=== PATIENT | male | born 1945 | race Caucasian/White ===

== ENCOUNTER 2016-09-27 05:44 | Inpatient (IN) ==
[2016-09-19 10:29] LABS: Basophils % 0.7 % (0.0-0.8); Eosinophils # 0.3 10*3/uL (0.0-0.87); Eosinophils % 4.6 % (0.00-10.9); Hematocrit 37.1 VOL% (42.0-52.0); Immature Granulocytes % 0.5 %; Immature Granulocytes Absolute 0.03 #; Lymphocytes # 1.4 10*3/uL (1.4-4.0); Lymphocytes % 22.7 % (21.2-54.2); Mean Corpuscular Hemoglobin 30 PG (27-34); Mean Corpuscular Volume 86.7 FL (87-102); Mean Platelet Volume 10.7 FL (9.6-12.0); Monocytes # 0.4 10*3/uL (0.11-0.8); Monocytes % 6.1 % (1.7-12.7); Neutrophils % 65.4 % (38.7-73.9); Platelet Count 175 T/CUMM (130-400); Red Blood Count 4.28 MC/CUMM (3.8-5.5); White Blood Count 6.1 T/CUMM (4-12)
[2016-09-19 10:33] LABS: Apearance,Urine CLOUDY (Clear); Bacteria,Urine Many /HPF (Few); Bilirubin,Urine Negative (Negative); Blood, Urine Small mg/dL (Negative); Glucose,Urine (UA) 150 mg/dL (Negative); Ketones,Urine Negative (Negative); Mucus,Urine Occasional /LPF (Occasional); Nitrite,Urine Positive (Negative); Protein,Urine Negative; RBC,Urine 7 /HPF (0-4); Squamous Epithelial Cell,Urine Occasional /HPF (0-10); Urine Color Yellow (Yellow); Urine Specific Gravity 1.014 (1.001-1.035); Urine Urobilinogen < 2.0 EU/DL (0.2-1.0); WBC,Urine 361 /HPF (0-6)
--- NOTE | 2016-09-19 10:33 | EKG Report ---
Stationary ECG Study [facility] Test Date: 09/19/2016 10:33:24 AM Pat Name: PONCHO LONDONO Department: Room: Gender: M Director Of Home Economics: BLAZE 09-27-16 : 1945 Requested by: Kartik Owusu Order Number: [id number] Reading MD: JANNETTE CABRERA Intervals [place] Rate: 75 P: 80 UT: 163 QRS: 9 QRSD: 110 T: 37 QT: 408 QTc: 437 Interpretive Statements SINUS RHYTHM WITH FREQUENT SUPRAVENTRICULAR PREMATURE COMPLEXES POSSIBLE RIGHT VENTRICULAR CONDUCTION DELAY INFERIOR MYOCARDIAL INFARCTION, PROBABLY OLD WITH POSTERIOR EXTENSION NST Electronically Signed On 09-19-16 16:48:28 CDT by JANNETTE CABRERA [email or web address]
[2016-09-19 10:54] LABS: Calcium 9.3 MG/DL (8.5-10.1); Osmolality,Calculated 281.8 MOS/KG (273-304); Potassium 4.8 MMOL/L (3.5-5.1)
[2016-09-27] MEDS ORDERED: FAMOTIDINE 20 MG TABLET PO ONE (05:57)
[2016-09-27] MEDS ORDERED: LORazepam 1 MG TABLET PO ONE (05:57)
[2016-09-27] MEDS ORDERED: LEVOFLOXACIN INJ 500 MG in PREMIX 1 EACH IV ONE (06:00)
[2016-09-27] MEDS ORDERED: INSULIN REGULAR 100 UNIT/ML IV ONE (06:37)
[2016-09-27] MEDS ORDERED: LEVOFLOXACIN INJ 100 ML IV ONE (06:41)
[2016-09-27] MEDS ORDERED: FAMOTIDINE 20 MG TABLET ONE (06:41)
[2016-09-27] MEDS ORDERED: INSULIN REGULAR 100 UNIT/ML ONE (06:43)
[2016-09-27] MEDS ORDERED: NEOMYCIN/POLYMYXIN IRRIG SOLN 1 ML AMP BLADDERIRR ONE ×2 (07:07→07:22)
[2016-09-27] MEDS ORDERED: LIDOCAINE 2% 5 ML VIAL ONE (07:12)
[2016-09-27] MEDS ORDERED: PHENYLEPHRINE 1 MG/10 ML SYRINGE IV ONE (07:12)
[2016-09-27] MEDS ORDERED: PROPOFOL 200 MG/20 ML VIAL IV ONE (07:12)
[2016-09-27] MEDS ORDERED: MEPERIDINE 50 MG/1 ML VIAL IM PRN (09:24)
--- NOTE | 2016-09-27 09:29 | Operative Note ---
Date of procedure: 09/27/16 Pre-op diagnosis: BPH urinary retention, large bladder stone Post-op diagnosis: same Procedure: 70-year-old white male who was found to have urinary tract infection significant voiding problems with retention. His evaluation was completed he was found to have a rather large bladder stone and a moderately large prostate with a large median bar. I have recommended a laser fragmentation of the bladder stone and a transurethral resection of the prostate by electrocautery technique. These procedures was explained to the patient at length and in detail. Risks, complications, outcomes, sequelae, prognosis and alternative therapy was thoroughly discussed. Patient understood this and agreed to proceed. Patient had been found to have a urinary tract infection. He has been on Levaquin for the last 3 days. Red rubber catheter was inserted in his bladder and his bladder was irrigated with irrigant and about 2 300 cc was left in the bladder. 25 Gambian cystoscope passed after the urethra sounded to 26 Gambian. The video camera was attached. Inspection revealed the urethra prostate and bladder are unchanged. Stone in the bladder is a Moody stone and it measures 4 cm. The 550 mcm holmium laser fiber was passed through the cystoscope and the stone is then incrementally fragmented. This did take quite some time due to the size of the stone. But ultimately the stone was fragmented in pieces it could be Elicked out. After removing most of the fragments the TUR was begun. Cystoscope was removed. A 28 Gambian resectoscope sheath with Tor obturator was then passed in the bladder. The obturator was removed and the Streeter working element with 30 lens and loop was placed in the sheath. The resection was begun at the 12 o'clock position and carried down the surgical capsule. Resection was continued likewise manner from the 1:00 to 5: 00 11:00 7:00 positions. Cautery was used for hemostasis. The bladder was then Elicked of all chips. Inspection revealed all adenomas resected the bladder was free of chips and bladder stone fragments. Ureteral orifices as well as the external sphincter mechanism was intact. The resectoscope was then removed and a 22 Gambian three-way Hopson was inserted in the bladder and irrigated until clear. Catheter was connected irrigation Hopson drainage. Patient tolerated this procedure well was awakened anesthesia and sent to the recovery room in stable condition. All sponge, needle and instrument counts correct 2. Implants: 22 Gambian three-way Hopson Anesthesia: DARWINA Surgeon / Physician: Kartik Owusu Estimated blood loss: other (300 cc) Specimens: other (Bladder stone fragments, prostate chips) Condition: stable Disposition: PACU Results - Labs CBC & BMP: 09/19/16 10:18 09/19/16 10:18 Discharge Plan - Discharge Medications No Action Lisinopril [Prinivil] 5 mg PO DAILY Atorvastatin [Lipitor] 40 mg PO DAILY glipiZIDE [Glucotrol] 15 mg PO BIDAC Aspirin EC Tab 81 mg PO DAILY Atenolol 12.5 mg PO DAILY Saxagliptin HCl [Onglyza] 2.5 mg PO DAILY Tamsulosin [Flomax] 0.4 mg PO DAILY #30 capsule Metformin HCl 850 mg PO TID Cyanocobalamin Tab [Vitamin B12 Tab] 1,000 mcg PO DAILY - Follow Up or Referral - Forms/Instructions
[2016-09-27] MEDS: HYDROmorphone 2 MG/1 ML VIAL IV PRN ×4 (09:36→09:51)
[2016-09-27] MEDS ORDERED: ONDANSETRON 4 MG/2 ML VIAL ONE (09:36)
[2016-09-27] MEDS ORDERED: HYDROmorphone 2 MG/1 ML VIAL ONE (09:36)
[2016-09-27] MEDS ORDERED: ONDANSETRON 4 MG/2 ML VIAL IV PRN (09:51)
[2016-09-27] MEDS ORDERED: MEPERIDINE 25 MG/1 ML VIAL IV PRN (10:12)
[2016-09-27] MEDS: LEVOFLOXACIN INJ 500 MG in PREMIX 1 EACH IV SCH (11:57)
[2016-09-27] MEDS ORDERED: fentaNYL 100 MCG/2 ML VIAL ONE (13:02)
[2016-09-27] MEDS ORDERED: LACTATED RINGERS 1,000 ML IV ONE (13:02)
[2016-09-27] MEDS ORDERED: MIDAZOLAM 2 MG/2 ML VIAL ONE (13:02)
[2016-09-27] MEDS ORDERED: SEVOFLURANE 1 UNIT/15 MINUTE INH ONE (13:02)
--- NOTE | 2016-09-27 14:34 | Urology Progress Note ---
Urology - PN: Subj Interval history: Postoperative check. Patient is alert. Complains of pelvic pressures. irrigation is clear at times and then bloody. The nurses and will have to watch this. Vital signs are stable. Patient is stable. Exam - Constitutional Vitals: Period Temp Pulse Resp BP Sys/Cruz Pulse Ox Last 24 Hr 97.3 F-98.6 F 72-90 16-20 100-152/53-79 95-100 Results - Labs CBC & BMP: 09/19/16 10:18 09/19/16 10:18
--- NOTE | 2016-09-27 14:39 | Anesthesia Post-Op ---
Anesthesia Post OP - Post Ansesthetic Evaluation Patient seen in post op: Yes Resp: within normal limits CV: within normal limits Mental: within normal limits Temp: within normal limits [id number]: within normal limits Nausea and Vomiting: within normal limits Pain: within normal limits
[2016-09-27] MEDS: glipiZIDE 10 MG TABLET PO SCH (15:50)
[2016-09-27] MEDS: metFORMIN 850 MG TABLET PO SCH ×2 (15:50→20:16)
[2016-09-27] MEDS: SODIUM CHLORIDE 0.9% 1,000 ML IV SCH (15:50)
[2016-09-28 02:27] LABS: Basophils % 0.3 % (0.0-0.8); Eosinophils # 0.2 10*3/uL (0.0-0.87); Eosinophils % 1.6 % (0.00-10.9); Hematocrit 33.7 VOL% (42.0-52.0); Hemoglobin 11.4 GM/DL (14.0-18.0); Immature Granulocytes % 0.4 %; Immature Granulocytes Absolute 0.04 #; Lymphocytes # 1.7 10*3/uL (1.4-4.0); Mean Corpuscular HGB Conc 33.8 GM/DL (32-36); Mean Corpuscular Hemoglobin 30 PG (27-34); Mean Corpuscular Volume 87.1 FL (87-102); Mean Platelet Volume 10.7 FL (9.6-12.0); Monocytes # 0.4 10*3/uL (0.11-0.8); Monocytes % 4.4 % (1.7-12.7); Neutrophils # 7.4 10*3/uL (1.4-7.4); Neutrophils % 76.3 % (38.7-73.9); Platelet Count 171 T/CUMM (130-400); Red Blood Count 3.87 MC/CUMM (3.8-5.5); Red Cell Distribution Width 14.1 % (9.3-17.3); White Blood Count 9.7 T/CUMM (4-12)
[2016-09-28 02:54] LABS: Osmolality,Calculated 282.3 MOS/KG (273-304); Potassium 3.9 MMOL/L (3.5-5.1)
[2016-09-28] MEDS: SODIUM CHLORIDE 0.9% 1,000 ML IV SCH (03:29)
[2016-09-28] MEDS: sitaGLIPtin 100 MG TABLET PO SCH (08:26)
[2016-09-28] MEDS: CYANOCOBALAMIN 500 MCG TABLET PO SCH (08:26)
[2016-09-28] MEDS: ATORVASTATIN 40 MG TABLET PO SCH (08:26)
[2016-09-28] MEDS: glipiZIDE 10 MG TABLET PO SCH ×2 (08:26→15:41)
[2016-09-28] MEDS: LISINOPRIL 5 MG TABLET PO SCH (08:27)
[2016-09-28] MEDS: ATENOLOL 25 MG TABLET PO SCH (08:27)
[2016-09-28] MEDS: metFORMIN 850 MG TABLET PO SCH ×3 (08:27→20:24)
[2016-09-28] MEDS: LEVOFLOXACIN INJ 500 MG in PREMIX 1 EACH IV SCH ×2 (08:27→08:32)
--- NOTE | 2016-09-28 12:41 | Urology Progress Note ---
Urology - PN: Subj Interval history: Patient had a stable night. Blood work looks normal creatinine is normal. Urine is clear. We will DC his IV and catheter. We will INT his IV. I want to Levaquin to continue to go. He did have urinary tract infection and was destroying the stone and in the TURP we need to treat this so he does not have a septic episode. Exam - Constitutional Vitals: Period Temp Pulse Resp BP Sys/Cruz Pulse Ox Last 24 Hr 97.2 F-99.4 F 70-84 16-20 103-122/60-75 95-99 Results - Labs CBC & BMP: 09/28/16 01:45 09/28/16 01:45
[2016-09-29 07:22] VITALS: BP 128/63
[2016-09-29] MEDS: LISINOPRIL 5 MG TABLET PO SCH (08:37)
[2016-09-29] MEDS: glipiZIDE 10 MG TABLET PO SCH (08:37)
[2016-09-29] MEDS: ATENOLOL 25 MG TABLET PO SCH (08:38)
[2016-09-29] MEDS: LEVOFLOXACIN INJ 500 MG in PREMIX 1 EACH IV SCH (08:38)
[2016-09-29] MEDS: sitaGLIPtin 100 MG TABLET PO SCH (08:38)
[2016-09-29] MEDS: metFORMIN 850 MG TABLET PO SCH (08:38)
[2016-09-29] MEDS: CYANOCOBALAMIN 500 MCG TABLET PO SCH (08:38)
[2016-09-29] MEDS: ATORVASTATIN 40 MG TABLET PO SCH (08:38)
--- NOTE | 2016-09-29 13:19 | Discharge Summary ---
Hospital Course - Hospital Course Hospital Course: Patient was admitted for TURP and removal bladder stone. He underwent these procedures without difficulty. Catheter is out he is voiding well. His urine is mildly red. But I think he can go home. He did have urinary tract infection beforehand so I will send him home on a few biotics. Pathology report is pending. He has had a normal bowel movement. Tolerating diet. I will hold his aspirin. I will see him in 2 weeks. Discharge medicines will be Levaquin 500 mg #3, 1 p.o. daily, no refills. - Time spent with patient Time with patient DS: Greater than 30 minutes Diagnosis - Discharge Diagnosis (1) Bladder calculus Status: Resolved (2) Urinary retention due to benign prostatic hyperplasia Status: Resolved Discharge Plan - Discharge Data Disposition: Disch To Home/Self Care Condition at Discharge: Stable Discharge Diet: regular diet Activity: no lifting, other (Walking on flat ground is encouraged, no driving, heavy lifting etc.) Hygiene: no restrictions Weight Bearing at Discharge: full weight bearing Driving: no restrictions Contact your physician if you experience:: fever over 101, Difficulty voiding, Bleeding - Discharge Medications New Levofloxacin Inj [Levaquin Inj] 500 mg IV Q24H Continue Lisinopril [Prinivil] 5 mg PO DAILY Atorvastatin [Lipitor] 40 mg PO DAILY glipiZIDE [Glucotrol] 15 mg PO BIDAC Atenolol 12.5 mg PO DAILY Saxagliptin HCl [Onglyza] 2.5 mg PO DAILY Metformin HCl 850 mg PO TID Cyanocobalamin Tab [Vitamin B12 Tab] 1,000 mcg PO DAILY Discontinued Aspirin EC Tab 81 mg PO DAILY Tamsulosin [Flomax] 0.4 mg PO DAILY #30 capsule - Follow Up or Referral - Forms/Instructions Exam - Constitutional Vitals: Period Temp Pulse Resp BP Sys/Cruz Pulse Ox Last 24 Hr 97.5 F-99.3 F 71-83 20-20 113-128/57-71 93-98 Discharge Results Procedures and tests throughout hospitalization: Pending Orders 09/27/16 09:41 Kidney Stone Analysis Routine Labs on day of discharge: Labs from last 24 hours 09/29/16 09/29/16 09/28/16 11:32 07:46 19:30 POC Glucose 217 H 236 H 155 H 09/28/16 09/28/16 15:17 11:37 POC Glucose 192 H 255 H DS: Provider Date of admission: 09/27/16 09:20 Primary care physician: Joce Chaidez Attending physician on admission: Kartik Owusu MD Discharging clinician: Kartik Owusu MD
--- NOTE | 2016-09-30 12:23 | Pathology Report from [facility] ---
[facility] ACCESSION # : [id number] PATIENT NAME : Pa Londono ORDERING DR : LONG AMEZCUA MD CLINICAL HX: BPH POST-OP DX: Same SPECIMEN INFO: Prostate shavings GROSS DESCRIPTION: Received fresh labeled PA LONDONO consists of mutliple fragments of pink negrete prostate tissue weighnig 41 gms and measures 10.0 x 9.0 x 1.5 cm in aggregate, submitted in cassettes A-J. DIAGNOSIS FOR PA LONDONO: PROSTATE PARINGS, TURP: Glandular and fibromuscular hyperplasia/hypertrophy; acute and chronic prostatitis. COLLECTED DATE: 09/27/2016 [facility] REPORT DATE: 09/30/2016 ELECTRONICALLY SIGNED BY: Maryanne Watt M.D. 09/30/2016 - 10:47:35 [facility]
== END 2016-09-29 14:40 | disposition home or self-care (01) | DRG 666 ==
LOC: N.SDSINP 05:44 → N.OR 05:44 → N.SDSINP 09:20 → N.5E 11:00
PROVIDERS: ADMIT Urology; ATTEND Urology

== ENCOUNTER 2020-04-03 00:14 | Observation (INO) ==
[2020-04-03] MEDS ORDERED: SODIUM CHLORIDE 0.9% 1,000 ML IV STA (00:29)
[2020-04-03] MEDS ORDERED: ONDANSETRON 4 MG/2 ML VIAL IV ONE (00:29)
[2020-04-03 00:51] LABS: Basophils % 0.3 % (0.0-0.8); Eosinophils # 0.1 10*3/uL (0.0-0.87); Eosinophils % 0.7 % (0.00-10.9); Hematocrit 37.5 VOL% (42.0-52.0); Hemoglobin 12.8 GM/DL (14.0-18.0); Immature Granulocytes % 0.3 %; Immature Granulocytes Absolute 0.02 #; Lymphocytes # 0.7 10*3/uL (1.4-4.0); Lymphocytes % 10.1 % (21.2-54.2); Mean Corpuscular HGB Conc 34.1 GM/DL (32-36); Mean Corpuscular Volume 88.2 FL (87-102); Monocytes # 0.3 10*3/uL (0.11-0.8); Monocytes % 4.8 % (1.7-12.7); Neutrophils % 83.8 % (38.7-73.9); Platelet Count 119 T/CUMM (130-400); Red Blood Count 4.25 MC/CUMM (3.8-5.5); Red Cell Distribution Width 13.5 % (9.3-17.3); White Blood Count 7.1 T/CUMM (4-12)
[2020-04-03] MEDS ORDERED: MAGNESIUM SULFATE 1 GM/2 ML VIAL IV ONE (00:51)
[2020-04-03 00:55] LABS: Alanine Aminotransferase 43 U/L (16-61); Albumin 3.4 G/DL (3.4-5.0); Alkaline Phosphatase 69 U/L (45-117); Aspartate Amino Transferase 33 U/L (0-37); Blood Urea Nitrogen 15 MG/DL (7-18); Calcium 8.3 MG/DL (8.5-10.1); Carbon Dioxide 20 MMOL/L (21-32); Chloride 106 MMOL/L (98-107); Estimated Glom Filtration Rate 67 ML/MIN; Glucose 192 MG/DL (74-106); Osmolality,Calculated 278.8 MOS/KG (273-304); Potassium 3.5 MMOL/L (3.5-5.1); Sodium 137 MMOL/L (136-145); Total Protein 6.9 G/DL (6.4-8.3); Troponin I < 0.015 NG/ML (0.00-0.045)
[2020-04-03] MEDS ORDERED: MAGNESIUM SULF RIDER 50 ML IV STA (01:07)
[2020-04-03] MEDS ORDERED: SODIUM CHLORIDE 0.9% 500 ML IV STA (01:33)
[2020-04-03 02:05] LABS: Bacteria,Urine Occasional /HPF (Few); Bilirubin,Urine Negative (Negative); Blood, Urine Small mg/dL (Negative); Glucose,Urine (UA) 150 mg/dL (Negative); Hyaline Casts,Urine 1 /LPF (0-3); Ketones,Urine 5 mg/dL (Negative); Mucus,Urine Occasional /LPF (Occasional); Nitrite,Urine Negative (Negative); Protein,Urine Negative; RBC,Urine 5 /HPF (0-4); Urine Appearance CLEAR (Clear); Urine Color Yellow (Yellow); Urine Specific Gravity 1.016 (1.001-1.035); Urine Urobilinogen < 2.0 EU/DL (0.2-1.0); WBC,Urine 6 /HPF (0-6)
[2020-04-03] MEDS ORDERED: PROMETHAZINE 25 MG/1 ML VIAL IM PRN (02:34)
[2020-04-03] MEDS ORDERED: GLUCAGON 1 MG VIAL IM PRN (02:34)
[2020-04-03] MEDS ORDERED: ONDANSETRON 4 MG/2 ML VIAL IV PRN (02:34)
[2020-04-03] MEDS ORDERED: ACETAMINOPHEN 325 MG TABLET PO PRN (02:34)
[2020-04-03] MEDS ORDERED: DEXTROSE 50% 25 GM/50 ML VIAL IV PRN (02:34)
[2020-04-03] MEDS: SODIUM CHLORIDE 0.9% 1,000 ML IV SCH ×2 (05:37→11:52)
[2020-04-03 08:05] LABS: Albumin 3.5 G/DL (3.4-5.0); Bilirubin,Total 0.7 MG/DL (0.2-1.0); Calcium 8.4 MG/DL (8.5-10.1); Osmolality,Calculated 278.7 MOS/KG (273-304); Potassium 4.1 MMOL/L (3.5-5.1); Total Protein 7.5 G/DL (6.4-8.3)
[2020-04-03] MEDS: INSULIN REGULAR 100 UNIT/ML SUBCUT SCH ×4 (08:23→21:00)
[2020-04-03] MEDS: PANTOPRAZOLE 40 MG TABLET PO SCH (08:24)
[2020-04-03] MEDS: ENOXAPARIN 40 MG/0.4 ML SYRINGE SUBCUT SCH (08:24)
[2020-04-04] MEDS: SODIUM CHLORIDE 0.9% 1,000 ML IV SCH ×3 (01:47→05:58)
[2020-04-04 03:46] LABS: Basophils % 0.2 % (0.0-0.8); Eosinophils % 0.2 % (0.00-10.9); Hematocrit 36.5 VOL% (42.0-52.0); Hemoglobin 12.5 GM/DL (14.0-18.0); Immature Granulocytes % 0.2 %; Immature Granulocytes Absolute 0.01 #; Lymphocytes # 0.7 10*3/uL (1.4-4.0); Lymphocytes % 13.5 % (21.2-54.2); Mean Corpuscular HGB Conc 34.2 GM/DL (32-36); Mean Corpuscular Volume 86.7 FL (87-102); Mean Platelet Volume 11.5 FL (9.6-12.0); Monocytes # 0.3 10*3/uL (0.11-0.8); Monocytes % 5.1 % (1.7-12.7); Neutrophils % 80.8 % (38.7-73.9); Red Blood Count 4.21 MC/CUMM (3.8-5.5); Red Cell Distribution Width 13.1 % (9.3-17.3); White Blood Count 5.1 T/CUMM (4-12)
[2020-04-04 04:00] LABS: Platelet Count 98 T/CUMM (130-400)
[2020-04-04 04:05] LABS: Calcium 8.2 MG/DL (8.5-10.1); Osmolality,Calculated 273.8 MOS/KG (273-304); Potassium 3.7 MMOL/L (3.5-5.1)
[2020-04-04] MEDS: PANTOPRAZOLE 40 MG TABLET PO SCH (08:04)
[2020-04-04] MEDS: ENOXAPARIN 40 MG/0.4 ML SYRINGE SUBCUT SCH (08:04)
[2020-04-04] MEDS: INSULIN REGULAR 100 UNIT/ML SUBCUT SCH ×2 (08:04→12:39)
[2020-04-04] MEDS ORDERED: DEXTROSE 50% 25 GM/50 ML VIAL IV PRN (09:12)
[2020-04-04 12:24] VITALS: BP 120/66
== END 2020-04-04 14:03 | disposition home or self-care (01) ==
LOC: EDUNIT# → EDBD → N.EDINP 00:14 → N.ED 00:14 → N.EDINP 05:00 → N.TELES 05:27
PROVIDERS: ADMIT Internal Medicine; ATTEND Internal Medicine

== ENCOUNTER 2020-04-05 08:05 | Inpatient (IN) ==
[2020-04-05] MEDS ORDERED: ONDANSETRON 4 MG/2 ML VIAL IV STA (08:31)
[2020-04-05] MEDS ORDERED: SODIUM CHLORIDE 0.9% 1,000 ML IV STA (08:31)
[2020-04-05 08:47] LABS: Basophils % 0.2 % (0.0-0.8); Hematocrit 37.3 VOL% (42.0-52.0); Hemoglobin 12.8 GM/DL (14.0-18.0); Immature Granulocytes % 0.4 %; Immature Granulocytes Absolute 0.02 #; Lymphocytes # 0.5 10*3/uL (1.4-4.0); Lymphocytes % 9.8 % (21.2-54.2); Mean Corpuscular HGB Conc 34.3 GM/DL (32-36); Mean Corpuscular Volume 86.9 FL (87-102); Mean Platelet Volume 11.4 FL (9.6-12.0); Monocytes % 3.4 % (1.7-12.7); Neutrophils % 86.2 % (38.7-73.9); Red Blood Count 4.29 MC/CUMM (3.8-5.5); Red Cell Distribution Width 13.3 % (9.3-17.3)
[2020-04-05 08:48] LABS: Platelet Count 86 T/CUMM (130-400)
[2020-04-05 09:04] LABS: Hypochromasia 1+; Microcytosis 1+; Platelet Estimate Decreased
[2020-04-05 09:06] LABS: Albumin 3.3 G/DL (3.4-5.0); Calcium 8.3 MG/DL (8.5-10.1); Osmolality,Calculated 273.4 MOS/KG (273-304); Total Protein 7.2 G/DL (6.4-8.3)
[2020-04-05 09:15] LABS: Free T4 (Free Thyroxine) 1.23 NG/DL (0.76-1.46); Thyroid Stimulating Hormone 0.294 uIU/ml (0.358-3.74)
[2020-04-05] MEDS ORDERED: DEXTROSE 50% 25 GM/50 ML VIAL IV PRN (09:20)
[2020-04-05] MEDS ORDERED: hydrALAZINE 20 MG/1 ML VIAL IV PRN (09:20)
[2020-04-05] MEDS ORDERED: ACETAMINOPHEN 325 MG TABLET PO PRN (09:20)
[2020-04-05] MEDS ORDERED: GLUCAGON 1 MG VIAL IM PRN (09:20)
[2020-04-05 09:40] LABS: PT Patient Result 10.9 SECS (9.8-11.9)
[2020-04-05 10:03] LABS: Amorphous Crystals,Urine Few /HPF (Few); Bacteria,Urine Occasional /HPF (Few); Bilirubin,Urine Negative (Negative); Blood, Urine Moderate mg/dL (Negative); Glucose,Urine (UA) >=500 mg/dL (Negative); Ketones,Urine 80 mg/dL (Negative); Mucus,Urine Occasional /LPF (Occasional); Nitrite,Urine Negative (Negative); Protein,Urine 30 MG/DL; RBC,Urine 4 /HPF (0-4); Urine Appearance CLEAR (Clear); Urine Color Yellow (Yellow); Urine Specific Gravity 1.015 (1.001-1.035); Urine Urobilinogen < 2.0 EU/DL (0.2-1.0); WBC,Urine 3 /HPF (0-6)
[2020-04-05] MEDS: AZITHROMYCIN INJ 500 MG in SODIUM CHLORIDE 0.9% 250 ML IV SCH (10:10)
[2020-04-05] MEDS: cefTRIAXone 1,000 MG in SYRINGE 1 EACH IV SCH (10:10)
[2020-04-05] MEDS: SODIUM CHLORIDE 0.9% 1,000 ML IV SCH (10:10)
[2020-04-05 10:16] LABS: Ferritin 219.8 ng/ml (26-388)
[2020-04-05] MEDS: ENOXAPARIN 40 MG/0.4 ML SYRINGE SUBCUT SCH (16:20)
[2020-04-05] MEDS: INSULIN REGULAR 100 UNIT/ML SUBCUT SCH ×2 (16:34→21:34)
[2020-04-05] MEDS: ALBUTEROL INHALER 18 GM INH SCH (22:05)
[2020-04-05] MEDS: guaiFENesin/DM ER 600-30 MG TABLET PO SCH (23:12)
[2020-04-05] MEDS: FAMOTIDINE 20 MG TABLET PO SCH (23:12)
[2020-04-05] MEDS: ASCORBIC ACID 500 MG TABLET PO SCH (23:12)
[2020-04-06] MEDS: ALBUTEROL INHALER 18 GM INH SCH ×2 (00:36→23:00)
[2020-04-06 02:50] LABS: Calcium 8.3 MG/DL (8.5-10.1); Osmolality,Calculated 272.2 MOS/KG (273-304)
[2020-04-06 02:52] LABS: Basophils % 0.2 % (0.0-0.8); Hematocrit 40.3 VOL% (42.0-52.0); Hemoglobin 14.1 GM/DL (14.0-18.0); Immature Granulocytes % 0.4 %; Immature Granulocytes Absolute 0.02 #; Lymphocytes % 19.8 % (21.2-54.2); Mean Corpuscular Volume 85.6 FL (87-102); Mean Platelet Volume 11.5 FL (9.6-12.0); Monocytes % 2.6 % (1.7-12.7); Red Blood Count 4.71 MC/CUMM (3.8-5.5); Red Cell Distribution Width 13.3 % (9.3-17.3); White Blood Count 4.9 T/CUMM (4-12)
[2020-04-06 02:54] LABS: Ferritin 316.9 ng/ml (26-388)
[2020-04-06 02:55] LABS: Platelet Count 97 T/CUMM (130-400)
[2020-04-06 03:34] LABS: Ovalocytes 1+; Platelet Estimate Adequate
[2020-04-06 03:35] LABS: Burr Cells 1+
[2020-04-06] MEDS: SODIUM CHLORIDE 0.9% 1,000 ML IV SCH (06:59)
[2020-04-06] MEDS: ASPIRIN EC 81 MG TABLET PO SCH (09:25)
[2020-04-06] MEDS: ENOXAPARIN 40 MG/0.4 ML SYRINGE SUBCUT SCH (09:25)
[2020-04-06] MEDS: CHOLECALCIFEROL 1,000 UNIT TABLET PO SCH (09:25)
[2020-04-06] MEDS: glipiZIDE 10 MG TABLET PO SCH ×2 (09:25→15:30)
[2020-04-06] MEDS: ATORVASTATIN 40 MG TABLET PO SCH (09:25)
[2020-04-06] MEDS: CETIRIZINE 10 MG TABLET PO SCH (09:25)
[2020-04-06] MEDS: ZINC GLUCONATE 50 MG TABLET PO SCH (09:25)
[2020-04-06] MEDS: cefTRIAXone 1,000 MG in SYRINGE 1 EACH IV SCH (09:25)
[2020-04-06] MEDS: AZITHROMYCIN INJ 500 MG in SODIUM CHLORIDE 0.9% 250 ML IV SCH (09:25)
[2020-04-06] MEDS: FAMOTIDINE 20 MG TABLET PO SCH ×2 (09:25→23:01)
[2020-04-06] MEDS: DEXAMETHASONE 4 MG/1 ML VIAL IV SCH (09:25)
[2020-04-06] MEDS: guaiFENesin/DM ER 600-30 MG TABLET PO SCH ×2 (09:25→23:01)
[2020-04-06] MEDS: ASCORBIC ACID 500 MG TABLET PO SCH ×2 (09:25→23:01)
[2020-04-06] MEDS: INSULIN REGULAR 100 UNIT/ML SUBCUT SCH ×4 (11:08→23:54)
[2020-04-06] MEDS ORDERED: AZITHROMYCIN INJ 500 MG in SODIUM CHLORIDE 0.9% 250 ML IV SCH (14:00)
[2020-04-06] MEDS ORDERED: SODIUM CHLORIDE 0.9% 1,000 ML IV PRN (15:00)
[2020-04-06] MEDS ORDERED: REMDESIVIR 200 MG in SODIUM CHLORIDE 0.9% 210 ML IV ONE (15:30)
[2020-04-07] MEDS: ALBUTEROL INHALER 18 GM INH SCH ×5 (00:26→20:14)
[2020-04-07 06:23] LABS: Basophils % 0.1 % (0.0-0.8); Hematocrit 40.3 VOL% (42.0-52.0); Hemoglobin 13.8 GM/DL (14.0-18.0); Immature Granulocytes % 0.4 %; Immature Granulocytes Absolute 0.03 #; Lymphocytes # 0.7 10*3/uL (1.4-4.0); Lymphocytes % 9.5 % (21.2-54.2); Mean Corpuscular HGB Conc 34.2 GM/DL (32-36); Mean Corpuscular Volume 87.2 FL (87-102); Mean Platelet Volume 12.1 FL (9.6-12.0); Monocytes % 3.2 % (1.7-12.7); Neutrophils % 86.8 % (38.7-73.9); Platelet Count 124 T/CUMM (130-400); Red Blood Count 4.62 MC/CUMM (3.8-5.5); Red Cell Distribution Width 13.5 % (9.3-17.3); White Blood Count 7.6 T/CUMM (4-12)
[2020-04-07 06:25] LABS: Calcium 8.4 MG/DL (8.5-10.1); Osmolality,Calculated 276.2 MOS/KG (273-304)
[2020-04-07 06:31] LABS: Ferritin 520.3 ng/ml (26-388)
[2020-04-07] MEDS: glipiZIDE 10 MG TABLET PO SCH ×2 (08:36→16:24)
[2020-04-07] MEDS: INSULIN REGULAR 100 UNIT/ML SUBCUT SCH ×4 (08:36→22:36)
[2020-04-07] MEDS ORDERED: VANCOMYCIN INJ 1,000 MG in SODIUM CHLORIDE 0.9% 250 ML IV SCH (09:00)
[2020-04-07] MEDS: ASPIRIN EC 81 MG TABLET PO SCH (10:15)
[2020-04-07] MEDS: guaiFENesin/DM ER 600-30 MG TABLET PO SCH ×2 (10:15→22:36)
[2020-04-07] MEDS: ZINC GLUCONATE 50 MG TABLET PO SCH (10:15)
[2020-04-07] MEDS: ASCORBIC ACID 500 MG TABLET PO SCH ×2 (10:15→22:36)
[2020-04-07] MEDS: FAMOTIDINE 20 MG TABLET PO SCH ×2 (10:15→22:35)
[2020-04-07] MEDS: REMDESIVIR 100 MG in SODIUM CHLORIDE 0.9% 100 ML IV SCH (10:15)
[2020-04-07] MEDS: ENOXAPARIN 40 MG/0.4 ML SYRINGE SUBCUT SCH (10:15)
[2020-04-07] MEDS: DEXAMETHASONE 4 MG/1 ML VIAL IV SCH (10:15)
[2020-04-07] MEDS: CETIRIZINE 10 MG TABLET PO SCH (10:15)
[2020-04-07] MEDS: ATORVASTATIN 40 MG TABLET PO SCH (10:15)
[2020-04-07] MEDS: CHOLECALCIFEROL 1,000 UNIT TABLET PO SCH (10:15)
[2020-04-07] MEDS: cefTRIAXone 1,000 MG in SYRINGE 1 EACH IV SCH (10:18)
[2020-04-07] MEDS: AZITHROMYCIN INJ 500 MG in SODIUM CHLORIDE 0.9% 250 ML IV SCH (12:20)
[2020-04-08] MEDS: ALBUTEROL INHALER 18 GM INH SCH ×4 (01:25→20:28)
[2020-04-08 05:52] LABS: Calcium 8.7 MG/DL (8.5-10.1); Osmolality,Calculated 281.7 MOS/KG (273-304)
[2020-04-08 05:55] LABS: Ferritin 822.2 ng/ml (26-388)
[2020-04-08 06:08] LABS: Hematocrit 42.5 VOL% (42.0-52.0); Hemoglobin 14.4 GM/DL (14.0-18.0); Immature Granulocytes % 0.5 %; Immature Granulocytes Absolute 0.04 #; Lymphocytes # 0.5 10*3/uL (1.4-4.0); Lymphocytes % 6.5 % (21.2-54.2); Mean Corpuscular HGB Conc 33.9 GM/DL (32-36); Mean Corpuscular Volume 86.9 FL (87-102); Mean Platelet Volume 11.6 FL (9.6-12.0); Platelet Count 148 T/CUMM (130-400); Red Blood Count 4.89 MC/CUMM (3.8-5.5); Red Cell Distribution Width 13.4 % (9.3-17.3); White Blood Count 7.6 T/CUMM (4-12)
[2020-04-08] MEDS ORDERED: risperiDONE 0.25 MG TABLET PO SCH (09:00)
[2020-04-08] MEDS: ENOXAPARIN 40 MG/0.4 ML SYRINGE SUBCUT SCH (10:15)
[2020-04-08] MEDS: atenoloL 25 MG TABLET PO SCH (10:15)
[2020-04-08] MEDS: guaiFENesin/DM ER 600-30 MG TABLET PO SCH (10:15)
[2020-04-08] MEDS: ZINC GLUCONATE 50 MG TABLET PO SCH (10:15)
[2020-04-08] MEDS: ASCORBIC ACID 500 MG TABLET PO SCH ×2 (10:15→20:28)
[2020-04-08] MEDS: glipiZIDE 10 MG TABLET PO SCH ×2 (10:15→16:36)
[2020-04-08] MEDS: INSULIN REGULAR 100 UNIT/ML SUBCUT SCH ×4 (10:15→21:20)
[2020-04-08] MEDS: ATORVASTATIN 40 MG TABLET PO SCH (10:15)
[2020-04-08] MEDS: CHOLECALCIFEROL 1,000 UNIT TABLET PO SCH (10:15)
[2020-04-08] MEDS: FAMOTIDINE 20 MG TABLET PO SCH ×2 (10:15→20:28)
[2020-04-08] MEDS: CETIRIZINE 10 MG TABLET PO SCH (10:15)
[2020-04-08] MEDS: DEXAMETHASONE 4 MG/1 ML VIAL IV SCH ×2 (10:15→18:10)
[2020-04-08] MEDS: ASPIRIN EC 81 MG TABLET PO SCH (10:15)
[2020-04-08] MEDS: REMDESIVIR 100 MG in SODIUM CHLORIDE 0.9% 100 ML IV SCH (10:18)
[2020-04-08] MEDS: cefTRIAXone 1,000 MG in SYRINGE 1 EACH IV SCH (10:21)
[2020-04-08] MEDS: AZITHROMYCIN INJ 500 MG in SODIUM CHLORIDE 0.9% 250 ML IV SCH (11:40)
[2020-04-08] MEDS ORDERED: risperiDONE 0.25 MG TABLET PO PRN (13:40)
[2020-04-08] MEDS ORDERED: FUROSEMIDE 40 MG/4 ML VIAL IV ONE (16:25)
[2020-04-08 17:28] LABS: ABG Base Excess -6.1 MMOL/L (-2.5-2.5); ABG HCO3 19.3 MMOL/L (20-26); ABG PCO2 22.9 MM HG (35-48); ABG PH 7.451 (7.35-7.45); ABG PO2 56.4 MM HG (80-95); ABG TCO2 13.8 MMOL/L (23-27); Allen Test Positive
[2020-04-08 18:00] LABS: Basophils % 0.1 % (0.0-0.8); Hematocrit 39.2 VOL% (42.0-52.0); Hemoglobin 13.7 GM/DL (14.0-18.0); Immature Granulocytes % 0.5 %; Immature Granulocytes Absolute 0.04 #; Lymphocytes # 0.5 10*3/uL (1.4-4.0); Mean Corpuscular HGB Conc 34.9 GM/DL (32-36); Mean Corpuscular Volume 85.4 FL (87-102); Mean Platelet Volume 10.9 FL (9.6-12.0); Monocytes % 2.3 % (1.7-12.7); Neutrophils % 90.1 % (38.7-73.9); Platelet Count 155 T/CUMM (130-400); Red Blood Count 4.59 MC/CUMM (3.8-5.5); Red Cell Distribution Width 13.7 % (9.3-17.3); White Blood Count 7.5 T/CUMM (4-12)
[2020-04-08 18:16] LABS: PT Patient Result 11.2 SECS (9.8-11.9)
[2020-04-08 18:25] LABS: Albumin 2.6 G/DL (3.4-5.0); Bilirubin,Total 0.8 MG/DL (0.2-1.0); Calcium 8.1 MG/DL (8.5-10.1); Osmolality,Calculated 290.8 MOS/KG (273-304); Total Protein 6.5 G/DL (6.4-8.3)
[2020-04-08 19:14] VITALS: BP 142/82
[2020-04-08] MEDS ORDERED: LORazepam 2 MG/1 ML VIAL ONE (19:40)
[2020-04-08] MEDS: LORazepam 2 MG/1 ML VIAL IV PRN (19:50)
[2020-04-08] MEDS ORDERED: QUEtiapine 25 MG TABLET PO SCH ×2 (21:00)
[2020-04-08] MEDS ORDERED: HALOPERIDOL 5 MG/ML AMP IV PRN (21:22)
[2020-04-09] MEDS: DEXAMETHASONE 4 MG/1 ML VIAL IV SCH ×4 (00:17→17:41)
[2020-04-09] MEDS: ALBUTEROL INHALER 18 GM INH SCH ×4 (02:32→18:23)
[2020-04-09 04:19] LABS: Allen Test Positive; Pt O2 Delivery Device BIPAP
[2020-04-09 04:20] LABS: ABG Base Excess -4.9 MMOL/L (-2.5-2.5); ABG HCO3 16.7 MMOL/L (20-26); ABG Oxygen Saturation 90.6 % (95-100); ABG PCO2 23.7 MM HG (35-48); ABG PH 7.467 (7.35-7.45); ABG PO2 62.3 MM HG (80-95); ABG TCO2 17.5 MMOL/L (23-27)
[2020-04-09 04:49] LABS: Calcium 8.2 MG/DL (8.5-10.1); Osmolality,Calculated 292.7 MOS/KG (273-304)
[2020-04-09 04:53] LABS: Basophils % 0.1 % (0.0-0.8); Hematocrit 47.7 VOL% (42.0-52.0); Hemoglobin 15.5 GM/DL (14.0-18.0); Immature Granulocytes % 0.4 %; Immature Granulocytes Absolute 0.03 #; Lymphocytes # 0.5 10*3/uL (1.4-4.0); Lymphocytes % 6.8 % (21.2-54.2); Mean Corpuscular HGB Conc 32.5 GM/DL (32-36); Mean Corpuscular Volume 91.2 FL (87-102); Mean Platelet Volume 11.3 FL (9.6-12.0); Monocytes % 2.7 % (1.7-12.7); Platelet Count 116 T/CUMM (130-400); Red Blood Count 5.23 MC/CUMM (3.8-5.5); Red Cell Distribution Width 13.7 % (9.3-17.3); White Blood Count 6.8 T/CUMM (4-12)
[2020-04-09] MEDS ORDERED: AZITHROMYCIN 250 MG TABLET PO SCH (09:00)
[2020-04-09] MEDS ORDERED: SODIUM BICARBONATE 50 MEQ/50 ML SYRINGE IV ONE (09:05)
[2020-04-09] MEDS: ASCORBIC ACID 500 MG TABLET PO SCH ×2 (10:02→21:45)
[2020-04-09] MEDS: ZINC GLUCONATE 50 MG TABLET PO SCH (10:02)
[2020-04-09] MEDS: CHOLECALCIFEROL 1,000 UNIT TABLET PO SCH (10:02)
[2020-04-09] MEDS: glipiZIDE 10 MG TABLET PO SCH ×2 (10:03→16:10)
[2020-04-09] MEDS: ASPIRIN EC 81 MG TABLET PO SCH (10:03)
[2020-04-09] MEDS: ATORVASTATIN 40 MG TABLET PO SCH (10:04)
[2020-04-09] MEDS: AZITHROMYCIN 250 MG TABLET PO SCH (10:04)
[2020-04-09] MEDS: FAMOTIDINE 20 MG TABLET PO SCH ×2 (10:04→21:47)
[2020-04-09] MEDS: atenoloL 25 MG TABLET PO SCH (10:04)
[2020-04-09] MEDS: INSULIN REGULAR 100 UNIT/ML SUBCUT SCH ×4 (10:05→22:00)
[2020-04-09] MEDS: REMDESIVIR 100 MG in SODIUM CHLORIDE 0.9% 100 ML IV SCH (10:31)
[2020-04-09] MEDS: ENOXAPARIN 40 MG/0.4 ML SYRINGE SUBCUT SCH ×2 (10:51→22:00)
[2020-04-09] MEDS: cefTRIAXone 1,000 MG in SYRINGE 1 EACH IV SCH (10:52)
[2020-04-09] MEDS: LORazepam 2 MG/1 ML VIAL IV PRN (12:09)
[2020-04-09 15:42] LABS: ABG Base Excess -3.4 MMOL/L (-2.5-2.5); ABG HCO3 21.5 MMOL/L (20-26); ABG Oxygen Saturation 93.5 % (95-100); ABG PCO2 25.2 MM HG (35-48); ABG PH 7.474 (7.35-7.45); ABG TCO2 15.8 MMOL/L (23-27); Allen Test Positive; Pt O2 Delivery Device BIPAP
[2020-04-09] MEDS ORDERED: LACTATED RINGERS 1,000 ML IV ONE (19:03)
[2020-04-09] MEDS: SODIUM CHLORIDE 0.9% 1,000 ML IV SCH (21:45)
[2020-04-09] MEDS: FAMOTIDINE 20 MG/2 ML VIAL IV SCH (22:01)
[2020-04-10] MEDS: LORazepam 2 MG/1 ML VIAL IV PRN ×2 (03:15→11:35)
[2020-04-10 04:31] LABS: Allen Test Positive; Pt O2 Delivery Device BIPAP
[2020-04-10] MEDS: ALBUTEROL INHALER 18 GM INH SCH ×3 (04:34→18:12)
[2020-04-10 04:35] LABS: ABG Base Excess -3.9 MMOL/L (-2.5-2.5); ABG HCO3 21.2 MMOL/L (20-26); ABG Oxygen Saturation 97.6 % (95-100); ABG PCO2 28.4 MM HG (35-48); ABG PH 7.434 (7.35-7.45); ABG TCO2 16.6 MMOL/L (23-27)
[2020-04-10] MEDS: DEXAMETHASONE 4 MG/1 ML VIAL IV SCH ×4 (04:35→18:12)
[2020-04-10] MEDS: SODIUM CHLORIDE 0.9% 1,000 ML IV SCH ×3 (06:02→18:28)
[2020-04-10 06:11] LABS: Hematocrit 33.7 VOL% (42.0-52.0); Hemoglobin 11.7 GM/DL (14.0-18.0); Immature Granulocytes % 0.8 %; Immature Granulocytes Absolute 0.07 #; Lymphocytes # 0.4 10*3/uL (1.4-4.0); Lymphocytes % 4.2 % (21.2-54.2); Mean Corpuscular HGB Conc 34.7 GM/DL (32-36); Mean Corpuscular Volume 84.5 FL (87-102); Mean Platelet Volume 10.7 FL (9.6-12.0); Platelet Count 157 T/CUMM (130-400); Red Blood Count 3.99 MC/CUMM (3.8-5.5); Red Cell Distribution Width 13.6 % (9.3-17.3); White Blood Count 9.1 T/CUMM (4-12)
[2020-04-10 06:20] LABS: Calcium 7.3 MG/DL (8.5-10.1)
[2020-04-10 06:38] LABS: Hypochromasia Slight; Lymphocytes 5 % (20-55); Microcytosis Slight; Ovalocytes Slight; Platelet Estimate Adequate; Segmented Neutrophils 93 % (50-85); Total Cells Counted 100
[2020-04-10 06:39] LABS: Burr Cells Slight
[2020-04-10] MEDS: FAMOTIDINE 20 MG/2 ML VIAL IV SCH ×2 (09:05→20:29)
[2020-04-10] MEDS: ENOXAPARIN 40 MG/0.4 ML SYRINGE SUBCUT SCH ×2 (09:05→20:29)
[2020-04-10] MEDS: cefTRIAXone 1,000 MG in SYRINGE 1 EACH IV SCH (09:05)
[2020-04-10] MEDS: INSULIN REGULAR 100 UNIT/ML SUBCUT SCH ×4 (09:05→20:30)
[2020-04-10] MEDS: glipiZIDE 10 MG TABLET PO SCH (09:05)
[2020-04-10] MEDS: REMDESIVIR 100 MG in SODIUM CHLORIDE 0.9% 100 ML IV SCH (10:30)
[2020-04-10] MEDS: ASPIRIN EC 81 MG TABLET PO SCH (11:50)
[2020-04-10] MEDS: CHOLECALCIFEROL 1,000 UNIT TABLET PO SCH (11:50)
[2020-04-10] MEDS: ATORVASTATIN 40 MG TABLET PO SCH (11:50)
[2020-04-10] MEDS: ASCORBIC ACID 500 MG TABLET PO SCH ×2 (11:50→20:31)
[2020-04-10] MEDS: atenoloL 25 MG TABLET PO SCH (11:50)
[2020-04-10] MEDS: ZINC GLUCONATE 50 MG TABLET PO SCH (11:50)
[2020-04-10] MEDS: AZITHROMYCIN 250 MG TABLET PO SCH (11:51)
[2020-04-10] MEDS: INSULIN GLARGINE 100 UNIT/ML SUBCUT SCH (12:19)
[2020-04-10] MEDS: POTASSIUM CHLORIDE 20 MEQ/15 ML UDCUP PO SCH ×2 (14:00→16:01)
[2020-04-10] MEDS: SODIUM CHLORIDE 0.45% 1,000 ML IV SCH (18:29)
[2020-04-10] MEDS: ZINC OXIDE PASTE 113 GM TUBE TOP SCH (20:31)
[2020-04-11] MEDS: ALBUTEROL INHALER 18 GM INH SCH ×4 (02:21→20:22)
[2020-04-11] MEDS: DEXAMETHASONE 4 MG/1 ML VIAL IV SCH ×4 (02:21→17:40)
[2020-04-11] MEDS: SODIUM CHLORIDE 0.45% 1,000 ML IV SCH ×4 (04:51→23:42)
[2020-04-11 05:15] LABS: ABG HCO3 21.8 MMOL/L (20-26); ABG Oxygen Saturation 92.2 % (95-100); ABG PCO2 25.7 MM HG (35-48); ABG PH 7.477 (7.35-7.45); ABG PO2 64.2 MM HG (80-95); ABG TCO2 16.3 MMOL/L (23-27)
[2020-04-11] MEDS: FAMOTIDINE 20 MG/2 ML VIAL IV SCH ×2 (08:28→20:35)
[2020-04-11] MEDS: ASCORBIC ACID 500 MG TABLET PO SCH ×2 (08:28→20:35)
[2020-04-11] MEDS: ZINC GLUCONATE 50 MG TABLET PO SCH (08:28)
[2020-04-11] MEDS: ASPIRIN EC 81 MG TABLET PO SCH (08:28)
[2020-04-11] MEDS: INSULIN REGULAR 100 UNIT/ML SUBCUT SCH ×3 (08:28→17:47)
[2020-04-11] MEDS: atenoloL 25 MG TABLET PO SCH (08:28)
[2020-04-11] MEDS: ENOXAPARIN 40 MG/0.4 ML SYRINGE SUBCUT SCH (08:28)
[2020-04-11] MEDS: cefTRIAXone 1,000 MG in SYRINGE 1 EACH IV SCH (08:28)
[2020-04-11] MEDS: ZINC OXIDE PASTE 113 GM TUBE TOP SCH ×2 (08:28→20:35)
[2020-04-11] MEDS: INSULIN GLARGINE 100 UNIT/ML SUBCUT SCH ×2 (08:28→12:07)
[2020-04-11] MEDS: CHOLECALCIFEROL 1,000 UNIT TABLET PO SCH (08:28)
[2020-04-11] MEDS: ATORVASTATIN 40 MG TABLET PO SCH (08:28)
[2020-04-11 09:01] LABS: Basophils % 0.1 % (0.0-0.8); Hematocrit 40.4 VOL% (42.0-52.0); Hemoglobin 13.9 GM/DL (14.0-18.0); Immature Granulocytes % 0.5 %; Immature Granulocytes Absolute 0.07 #; Lymphocytes # 0.6 10*3/uL (1.4-4.0); Lymphocytes % 4.2 % (21.2-54.2); Mean Corpuscular HGB Conc 34.4 GM/DL (32-36); Mean Corpuscular Volume 85.8 FL (87-102); Monocytes % 3.3 % (1.7-12.7); Neutrophils % 91.9 % (38.7-73.9); Platelet Count 170 T/CUMM (130-400); Red Blood Count 4.71 MC/CUMM (3.8-5.5); White Blood Count 14.1 T/CUMM (4-12)
[2020-04-11 09:21] LABS: Lymphocytes 1 % (20-55); Platelet Estimate Adequate; Segmented Neutrophils 95 % (50-85); Total Cells Counted 100
[2020-04-11 09:22] LABS: Hypochromasia Slight; Microcytosis Slight
[2020-04-11 09:32] LABS: Albumin 2.6 G/DL (3.4-5.0); Bilirubin,Total 1.1 MG/DL (0.2-1.0); Calcium 8.1 MG/DL (8.5-10.1); Osmolality,Calculated 313.9 MOS/KG (273-304); Total Protein 6.3 G/DL (6.4-8.3)
[2020-04-11] MEDS: LORazepam 2 MG/1 ML VIAL IV PRN (12:07)
[2020-04-11] MEDS ORDERED: DIGOXIN 0.5 MG/2 ML AMP ONE (17:31)
[2020-04-11] MEDS ORDERED: DIGOXIN 0.5 MG/2 ML AMP IV ONE ×3 (17:32→18:30)
[2020-04-11 17:54] LABS: ABG Base Excess -4.9 MMOL/L (-2.5-2.5); ABG HCO3 20.3 MMOL/L (20-26); ABG Oxygen Saturation 91.7 % (95-100); ABG PH 7.494 (7.35-7.45); ABG PO2 61.7 MM HG (80-95); ABG TCO2 13.8 MMOL/L (23-27)
[2020-04-11] MEDS ORDERED: ETOMIDATE 20 MG/10 ML VIAL IV ONE ×4 (18:26→18:38)
[2020-04-11] MEDS ORDERED: SUCCINYLCHOLINE 200 MG/10 ML VIAL ONE (18:27)
[2020-04-11] MEDS ORDERED: DIGOXIN 0.5 MG/2 ML AMP IV SCH (18:30)
[2020-04-11] MEDS ORDERED: SODIUM CHLORIDE 0.45% 500 ML IV ONE (18:35)
[2020-04-11] MEDS ORDERED: SUCCINYLCHOLINE 200 MG/10 ML VIAL IV ONE (18:37)
[2020-04-11] MEDS ORDERED: SODIUM CHLORIDE 0.9% 500 ML IV ONE (18:43)
[2020-04-11] MEDS ORDERED: ROCURONIUM 100 MG/10 ML VIAL IV ONE ×2 (19:22→19:25)
[2020-04-11] MEDS ORDERED: CLOPIDOGREL 300 MG TABLET PO ONE (19:37)
[2020-04-11] MEDS ORDERED: CLOPIDOGREL 75 MG TABLET ONE (19:38)
[2020-04-11 19:39] LABS: ABG Base Excess -8.7 MMOL/L (-2.5-2.5); ABG HCO3 17.5 MMOL/L (20-26); ABG Oxygen Saturation 96.5 % (95-100); ABG PCO2 40.2 MM HG (35-48); ABG PH 7.262 (7.35-7.45)
[2020-04-11] MEDS ORDERED: HEPARIN DRIP 25,000 UNITS/500 ML PREMIX IV SCH (20:00)
[2020-04-11 20:39] LABS: Albumin 2.3 G/DL (3.4-5.0); Bilirubin,Total 1.8 MG/DL (0.2-1.0); CKMB % 3.7 %; Calcium 7.7 MG/DL (8.5-10.1); Osmolality,Calculated 313.1 MOS/KG (273-304); Total Protein 5.6 G/DL (6.4-8.3)
[2020-04-11] MEDS ORDERED: PHENYLEPHRINE DRIP 40 MG/250 ML PREMIX IV PRN (21:08)
[2020-04-11] MEDS ORDERED: DOPamine 800 MG/250 ML PREMIX IV PRN (21:14)
[2020-04-11] MEDS ORDERED: SODIUM CHLORIDE 0.9% 1,000 ML IV ONE (22:11)
[2020-04-12] MEDS: DEXAMETHASONE 4 MG/1 ML VIAL IV SCH ×4 (00:30→18:03)
[2020-04-12] MEDS: INSULIN REGULAR 100 UNIT/ML SUBCUT SCH ×4 (00:31→18:03)
[2020-04-12] MEDS: ALBUTEROL INHALER 18 GM INH SCH ×3 (00:32→13:34)
[2020-04-12 01:41] LABS: Basophils % 0.2 % (0.0-0.8); Hematocrit 43.5 VOL% (42.0-52.0); Hemoglobin 14.2 GM/DL (14.0-18.0); Immature Granulocytes Absolute 0.21 #; Lymphocytes % 4.5 % (21.2-54.2); Mean Corpuscular HGB Conc 32.6 GM/DL (32-36); Mean Corpuscular Volume 90.4 FL (87-102); Mean Platelet Volume 11.5 FL (9.6-12.0); Monocytes % 3.9 % (1.7-12.7); Neutrophils % 90.4 % (38.7-73.9); Platelet Count 124 T/CUMM (130-400); Red Blood Count 4.81 MC/CUMM (3.8-5.5); Red Cell Distribution Width 14.6 % (9.3-17.3); White Blood Count 21.4 T/CUMM (4-12)
[2020-04-12 01:59] LABS: Band Neutrophils 4 % (0-10); Lymphocytes 4 % (20-55); Platelet Estimate Normal; Segmented Neutrophils 92 % (50-85); Total Cells Counted 100
[2020-04-12 02:02] LABS: Albumin 2.3 G/DL (3.4-5.0); Bilirubin,Total 1.5 MG/DL (0.2-1.0); Calcium 7.5 MG/DL (8.5-10.1); Osmolality,Calculated 314.4 MOS/KG (273-304); Total Protein 5.8 G/DL (6.4-8.3)
[2020-04-12] MEDS ORDERED: SODIUM CHLORIDE 0.9% 1,000 ML IV ONE (02:30)
[2020-04-12 04:19] LABS: ABG Base Excess -12.3 MMOL/L (-2.5-2.5); ABG HCO3 15.1 MMOL/L (20-26); ABG Oxygen Saturation 99.2 % (95-100); ABG PCO2 50.2 MM HG (35-48); ABG TCO2 15.7 MMOL/L (23-27)
[2020-04-12 04:24] LABS: ABG PH 7.146 (7.35-7.45)
[2020-04-12] MEDS: ASCORBIC ACID 500 MG TABLET PO SCH (08:12)
[2020-04-12] MEDS: INSULIN GLARGINE 100 UNIT/ML SUBCUT SCH (08:12)
[2020-04-12] MEDS: FAMOTIDINE 20 MG/2 ML VIAL IV SCH (08:12)
[2020-04-12] MEDS: CHOLECALCIFEROL 1,000 UNIT TABLET PO SCH (08:12)
[2020-04-12] MEDS: ZINC GLUCONATE 50 MG TABLET PO SCH (08:12)
[2020-04-12] MEDS: ASPIRIN EC 81 MG TABLET PO SCH (08:12)
[2020-04-12] MEDS: ATORVASTATIN 40 MG TABLET PO SCH (08:13)
[2020-04-12] MEDS ORDERED: CLOPIDOGREL 75 MG TABLET PO SCH (09:00)
[2020-04-12] MEDS: ZINC OXIDE PASTE 113 GM TUBE TOP SCH (09:01)
[2020-04-12] MEDS: SODIUM CHLORIDE 0.45% 1,000 ML IV SCH (09:11)
[2020-04-12] MEDS ORDERED: LIDOCAINE 2% TOP JELLY 20 ML VIAL INTRAURETH ONE (09:40)
[2020-04-12] MEDS: cefTRIAXone 1,000 MG in SYRINGE 1 EACH IV SCH (10:00)
[2020-04-12] MEDS ORDERED: INSULIN GLARGINE 100 UNIT/ML SUBCUT ONE (10:00)
[2020-04-12] MEDS ORDERED: NOREPINEPHRINE 4 MG/4 ML VIAL IV ONE (10:03)
[2020-04-12] MEDS: NOREPINEPHRINE 8 MG in SODIUM CHLORIDE 0.9% 242 ML IV PRN ×2 (10:19→16:30)
[2020-04-13] MEDS ORDERED: INSULIN GLARGINE 100 UNIT/ML SUBCUT SCH (09:00)
== END 2020-04-12 19:03 | disposition expired | DRG 208 ==
LOC: EDUNIT# → N.EDINP 08:05 → N.ED 08:05 → INTOOBSV 09:20 → OBSVTOIN 09:20 → SUATTDRO 11:49 → N.2E 18:33 → N.CC 04-08 17:32
PROVIDERS: ADMIT Internal Medicine; ATTEND Internal Medicine